=== PATIENT | male | born 1960 | race Asian ===

== ENCOUNTER 2020-11-05 07:47 | Day surgery (SDC) | payer OTHER, SELFPAY ==
[~2020-11-05] VITALS: Ht 172.7 cm; Wt 81.6 kg
[2020-11-05] MEDS ORDERED: LIDOCAINE 2% 100 MG/5 ML UJET TP ONE ×2 (09:29→11:55)
[2020-11-05] MEDS ORDERED: fentaNYL citrate 0.05 MG/ML VIAL ONE (09:29)
[2020-11-05] MEDS ORDERED: fentaNYL citrate 0.05 MG/ML VIAL IVP ONE (11:55)
== END 2020-11-05 11:26 | disposition home or self-care (01) ==
LOC: MDS 07:47 → MMU 07:47 → MDS 11:26
PROVIDERS: ATTEND Internal Medicine Gastroenterology
DX: Z12.11 Encounter for screening for malignant neoplasm of colon (principal); F17.210 Nicotine dependence, cigarettes, uncomplicated; Z90.49 Acquired absence of other specified parts of digestive tract; Z20.828 Contact with and (suspected) exposure to other viral communicable diseases; Z79.899 Other long term (current) drug therapy
CPT/HCPCS: 45378; J3010; U0003